=== PATIENT | male | born 1950 | race Caucasian/White ===

== ENCOUNTER 2021-12-09 21:52 | Emergency (ER) | payer BC, MEDICARE, OTHER ==
[~2021-12-09] VITALS: Ht 182.9 cm; Wt 150.1 kg
[2021-12-09] MEDS ORDERED: AMIODARONE 150 MG/3 ML VIAL IV ONE (21:54)
[2021-12-09] MEDS ORDERED: ETOMIDATE 2 MG/ML VIAL IV ONE (21:54)
[2021-12-09] MEDS ORDERED: EPINEPHRINE (1:10,000) SYRINGE 1 MG/10 ML DISP.SYRIN IVP ONE (21:54)
--- NOTE | 2021-12-09 22:00 | NUR ---
TO ER BED 4. [id number]. FROM HOME C/O 3 SYNCOPAL EPISODES X TODAY. PT IS ALERT AND ORIENTED. RR EVEN AND NONLABORED. CONNECTED TO MONITOR. AWAITING MD VO
--- NOTE | 2021-12-09 22:07 | NUR ---
PT TAKEN TO CT VIA RICHARD
--- NOTE | 2021-12-09 22:19 | NUR ---
PT RETURNED TO ER BED [address]
--- NOTE | 2021-12-09 22:41 | NUR ---
IV LINE ESTABLISHED, LFA20G
--- NOTE | 2021-12-09 22:41 | NUR ---
BLOOD COLLECTED AND SENT TO LAB
[2021-12-09 23:16] LABS: BASOPHILS % (AUTO) 0.7 % (0.0-2.0); HEMATOCRIT 50 % (39-51); HEMOGLOBIN 16.3 g/dL (13.5-17.5); LYMPHOCYTES # (AUTO) 1.4 K/uL (0.8-4.8); MEAN CORPUSCULAR HGB CONC 33 g/dl (31.0-36.0); MEAN CORPUSCULAR VOLUME 87 fL (80-96); MONOCYTES # (AUTO) 0.4 K/uL (0.1-1.30); MONOCYTES % (AUTO) 7.5 % (2.0-12.0); NEUTROPHILS # (AUTO) 3.1 K/uL (1.8-8.9); NEUTROPHILS % (AUTO) 60.8 % (43.0-81.0); PLATELET COUNT (AUTO) 156 K/uL (150-450); RED BLOOD CELL COUNT(AUTO) 5.69 MIL/uL (4.5-6.0); WHITE BLOOD COUNT (AUTO) 5.1 K/uL (4.3-11.0)
[2021-12-09 23:26] LABS: CALCIUM, SERUM 9.5 mg/dL (8.5-10.1); CARBON DIOXIDE 24 mmol/L (21-32); CHLORIDE 101 mmol/L (98-107); CREATININE 1.6 mg/dL (0.6-1.3); GLUCOSE 147 mg/dL (74-106); POTASSIUM 3.7 mmol/L (3.5-5.1); SODIUM SERUM 136 mmol/L (136-145); UREA NITROGEN, BLOOD 51 mg/dL (7-18)
[2021-12-09 23:32] LABS: ALANINE AMINOTRANSFERASE 65 U/L (12-78); ALBUMIN 4.2 g/dL (3.4-5.0); ALKALINE PHOSPHATASE 81 U/L (46-116); ASPARTATE AMINOTRANSFERASE 43 U/L (15-37); BILIRUBIN,DIRECT 0.2 mg/dL (0.0-0.2); BILIRUBIN,TOTAL 0.5 mg/dL (0.2-1.0); TOTAL PROTEIN, SERUM 7.7 g/dL (6.4-8.2)
--- NOTE | 2021-12-09 23:43 | NUR ---
PT HAD "SYNCOPAL EPISODE" LASTING APPROX 1 MIN., PT HAD FIXED GAZE, AUDIBLE WHEEZES O2 SAT NOTED 89-90%, BP DROPPED 82/57, HR ELEVATED 111. NOT RESPONSIVE TO VERBAL STIMULI OR STERNAL RUB DURING EPISODE. PT ALERT AND ORIENTED AND RR EVEN AND NON LABORED POST EPISODE. CONTINUES TO BE ON POX AND HEART MONITOR. MADE AWARE
[2021-12-10] MEDS ORDERED: IV NS 0.9% 1,000 ML IV PRN
[2021-12-10] MEDS ORDERED: AMIODARONE 150 MG/3 ML VIAL IV ONE ×3 (01:00→01:16)
[2021-12-10] MEDS ORDERED: LIDOCAINE 1% INJ 50 ML MDV IJ ONE (01:15)
[2021-12-10] MEDS ORDERED: LIDOCAINE 100MG/5ML DISP SYR ONE ×2 (01:17→01:18)
[2021-12-10] MEDS ORDERED: LIDOCAINE 100MG/5ML DISP SYR IV ONE (01:30)
--- NOTE | 2021-12-10 01:35 | NUR ---
DR. MENDOZA ON THE PHONE WITH DR. PEREZ FOR CARDIO CONSULT
--- NOTE | 2021-12-10 01:35 | NUR ---
IV ESTABLISHED RFA #18G S/L & LFA #20G S/L PATENT AND INTACT
[2021-12-10] MEDS ORDERED: Magnesium 1GM/D5W 100ML PREMIX 200 ML IV ONE (01:42)
--- NOTE | 2021-12-10 01:48 | NUR ---
PER DR MENDOZA TO RUN EACH BAG OF MAGNESIUM OVER 15 MIN
[2021-12-10] MEDS: POTASSIUM CL. PREMIX PERIPHER. 50 ML IV SCH ×2 (01:49→02:03)
[2021-12-10] MEDS ORDERED: POTASSIUM CL. PREMIX PERIPHER. 100 ML ONE (01:58)
[2021-12-10] MEDS ORDERED: IV LIDOCAINE HCL/D5W/PF/500ML 2,000 MG in PREMIX 1 EA IV STA (01:58)
[2021-12-10] MEDS ORDERED: AMIODARONE 450 MG/9 ML VIAL IV ONE (02:00)
[2021-12-10] MEDS ORDERED: Magnesium 1 GM/2 ML VIAL IV ONE (02:00)
--- NOTE | 2021-12-10 02:11 | NUR ---
CALLED CREW ATTENDANT TO PAGE THE PHARMACIST
[2021-12-10] MEDS ORDERED: D5W IV ONE (02:18)
[2021-12-10] MEDS ORDERED: LIDOCAINE HCL IV ONE (02:18)
--- NOTE | 2021-12-10 02:27 | NUR ---
PT ON AMIO DRIP ORDERED. RN AT PT'S BEDSIDE FOR EKG; HR AT 87
--- NOTE | 2021-12-10 02:31 | NUR ---
RAC #18G S/L PATENT AND INTACT
--- NOTE | 2021-12-10 02:33 | NUR ---
CALLED [facility] TO INITIATE TRANSFER FOR HIGHER LEVEL OF CARE. PT IS NEEDS ELECTRO PHYSIOLOGY. SPOKE WITH HATTIE FROM TRANSFER CENTER
--- NOTE | 2021-12-10 02:38 | NUR ---
COVID ANTIGEN SWAB COLLECTED AND SENT TO LAB
--- NOTE | 2021-12-10 02:42 | NUR ---
RAC PIV 18G STARTED WITH GOOD BLOOD DRAW
--- NOTE | 2021-12-10 03:15 | NUR ---
INSURANCE ACCOUNT EXECUTIVE AT PT'S BEDSIDE
--- NOTE | 2021-12-10 03:53 | NUR ---
ELEVATED TROP 185, MADE AWARE
--- NOTE | 2021-12-10 03:59 | NUR ---
SPOKE TO [facility] AND RE-FAXED ALL THE CLINICALS AND FACE SHEET WITH UPDATED LAB AND IMAGING TO [phone]
[2021-12-10] MEDS ORDERED: ASPIRIN 325 MG TABLET ONE (04:16)
[2021-12-10] MEDS ORDERED: MORPHINE SULFATE INJ 4 MG/ML DISP.SYRIN ONE (04:16)
--- NOTE | 2021-12-10 04:18 | NUR ---
PER NEREIDA AT [facility] THEY HAVE REC'D THE DOCUMENTS, UNDER REVIEW
--- NOTE | 2021-12-10 04:45 | NUR ---
Dr. Blount on the phone with at [facility]
--- NOTE | 2021-12-10 05:19 | NUR ---
PT IS ACCEPTED AT [facility] UNDER CARE OF DR. FRANCISCO GOING TO ROOM 4S48
--- NOTE | 2021-12-10 05:20 | NUR ---
[facility]: TO CALL BACK AT [phone]
--- NOTE | 2021-12-10 05:22 | NUR ---
[facility]: [facility] transportation at 5pm
--- NOTE | 2021-12-10 05:27 | NUR ---
BAUDILIO AT [facility] UNABLE TO PROVIDE TANSPORTATION DUETO "SATURATED"
[2021-12-10] MEDS ORDERED: ASPIRIN 81 MG TAB.CHEW PO STA (05:34)
[2021-12-10] MEDS ORDERED: MORPHINE SULFATE INJ 4 MG/ML DISP.SYRIN IV PRN (06:00)
--- NOTE | 2021-12-10 06:35 | NUR ---
[facility] ETA: 20 MIN
[2021-12-10 07:01] VITALS: BP 123/84
--- NOTE | 2021-12-10 07:04 | NUR ---
REPORT GIVEN TO LAILA LYNN AT [facility]
--- NOTE | 2021-12-10 07:44 | NUR ---
PT WAS TRANSFERRED TO [facility] VIA CCT TRANSFER OF [facility]. SHANE LUNA IS ACCOMPANIED THE PT. PT CONTINUED ON LIDACINE DRIP AND AMIODARONE AT 16.6ML/HR.
[2021-12-10] MEDS ORDERED: AMIODARONE 450 MG in IV D5W 241 ML IV ONE (08:00)
[2021-12-10] MEDS ORDERED: AMIODARONE 450 MG in IV D5W 241 ML IV PRN (08:00)
[2021-12-10] MEDS ORDERED: ASPIRIN 81 MG TAB.CHEW PO SCH (09:00)
== END 2021-12-10 07:48 | disposition short-term general hospital (02) ==
LOC: ER 21:53 → UNDOADMIN 12-10 01:34 → ICU 12-10 01:34 → ER 12-10 07:48
DX: R55 Syncope and collapse (principal); I47.20 Ventricular tachycardia, unspecified; Z20.822 Contact with and (suspected) exposure to COVID-19; I10 Essential (primary) hypertension; I48.91 Unspecified atrial fibrillation; Z79.01 Long term (current) use of anticoagulants; E78.5 Hyperlipidemia, unspecified; K51.90 Ulcerative colitis, unspecified, without complications; Z88.1 Allergy status to other antibiotic agents; Z88.5 Allergy status to narcotic agent
CPT/HCPCS: 99291; 70450; 71045; 99292; 93005 ×3; 85025; 80048; 80076; 36415 ×2; 84484 ×2; 85730; 82962 ×2; 92950; 96365; 96366; 96361; 96375; 87426; 83735; 87081; 96368; J0171; J7030; J0282 ×3; J3490; J2001 ×2; J3475 ×2; J2270; J7060; J7050; A4216; J3480

== ENCOUNTER 2024-11-15 12:35 | Emergency (ER) | payer BC, MEDICARE ==
[~2024-11-15] VITALS: Ht 177.8 cm; Wt 153.8 kg
[2024-11-15] MEDS: METOPROLOL SUCCINATE 50 MG TAB.SR.24H PO ONE
[2024-11-15 13:08] VITALS: TEMP 98.2
[2024-11-15 14:02] LABS: PLATELET COUNT (AUTO) 103 K/uL (150-450); RED BLOOD CELL COUNT(AUTO) 4.93 MIL/uL (4.5-6.0); RED CELL DISTRIBUTION WIDTH 17.0 % (11.5-15.0); WHITE BLOOD COUNT (AUTO) 4.9 K/uL (4.3-11.0)
[2024-11-15 14:14] LABS: INR 1.07 (0.91-1.10)
[2024-11-15 14:16] LABS: ASPARTATE AMINOTRANSFERASE 34.0 U/L (15-37); CALCIUM, SERUM 9.4 mg/dL (8.5-10.1); CREATININE 1.2 mg/dL (0.6-1.3); SODIUM SERUM 138.0 mmol/L (136-145); TOTAL PROTEIN, SERUM 7.5 g/dL (6.4-8.2); UREA NITROGEN, BLOOD 35.0 mg/dL (7-18)
[2024-11-15] MEDS ORDERED: FENTANYL PF 100MCG/2ML AMPUL ONE ×3 (14:58→20:32)
[2024-11-15] MEDS: FENTANYL PF 100MCG/2ML AMPUL IV ONE ×3 (15:03→20:42)
[2024-11-15] MEDS ORDERED: METOPROLOL TARTRATE 50 MG TABLET ONE (23:49)
[2024-11-15] MEDS ORDERED: METOPROLOL SUCCINATE 25 MG TAB.SR.24H ONE (23:50)
[2024-11-15] MEDS: METOPROLOL SUCCINATE 50 MG TAB.SR.24H PO SCH (23:56)
[2024-11-16] MEDS ORDERED: FENTANYL PF 100MCG/2ML AMPUL ONE (00:15)
[2024-11-16] MEDS: FENTANYL PF 100MCG/2ML AMPUL IV ONE (00:21)
[2024-11-16 01:04] VITALS: BP 152/86; O2SAT 99
== END 2024-11-16 02:37 | disposition short-term general hospital (02) ==
LOC: ER 12:37
DX: T84.021A Dislocation of internal left hip prosthesis, initial encounter (principal); K51.90 Ulcerative colitis, unspecified, without complications; I48.91 Unspecified atrial fibrillation; I11.9 Hypertensive heart disease without heart failure; E11.9 Type 2 diabetes mellitus without complications; E78.5 Hyperlipidemia, unspecified; K57.30 Diverticulosis of large intestine without perforation or abscess without bleeding; Z88.1 Allergy status to other antibiotic agents; Z88.5 Allergy status to narcotic agent; Z88.8 Allergy status to other drugs, medicaments and biological substances; Z90.49 Acquired absence of other specified parts of digestive tract; Z95.0 Presence of cardiac pacemaker; W01.0XXA Fall on same level from slipping, tripping and stumbling without subsequent striking against object, initial encounter; Y93.89 Activity, other specified; Y92.89 Other specified places as the place of occurrence of the external cause; Y99.8 Other external cause status
CPT/HCPCS: 99285; 74176; 96374; 96376 ×2; 85025; 80048; 80076; 36415; 85730; 86850; J3010 ×4